=== PATIENT | female | born 1960 | race Caucasian/White ===

== ENCOUNTER 2021-07-25 19:58 | Emergency (ER) | payer OTHER ==
--- NOTE | 2021-07-25 20:45 | ED Physician Documentation ---
PD HPI UPPER EXT INJURY - Stated complaint Stated Complaint: LT FINGER BURN - History obtained from History obtained from: Patient - History of Present Illness Location: Left, Finger (index finger distal fat pad.) Type of injury: Burn (she reached for oven rack, thinking it was not heated as yet (oven had just gotten turned on) but it was hot and she got a burn to tip of left index finger. Hurting less in cold water but continues being painful.) Where injury occurred: Home Timing - onset: Today Timing - duration: Minutes (30) Timing - details: Abrupt onset, Still present Worsened by: Moving, Palpating Associated symptoms: No: Weakness, Numbness Similar symptoms before: Has not had sx before Review of Systems Skin: denies: Laceration (s) Neurologic: denies: Focal weakness, Numbness PD PAST MEDICAL HISTORY - Past Medical History Past Medical History: No Endocrine/Autoimmune: HyPOthyroidism - Present Medications Home Medications: Ambulatory Orders Medication Instructions Recorded Confirmed Levothyroxine Sodium 50 mcg PO QDBREAKFAST 07/25/21 07/25/21 - Allergies Allergies/Adverse Reactions: Allergies Allergy/AdvReac Type Severity Reaction Status Date / Time No Known Drug Allergies Allergy Verified 07/25/21 20:46 PD ED PE NORMAL - Vitals Vital signs reviewed: Yes - General General: Alert and oriented X 3, No acute distress, Well developed/nourished - Derm Derm: Normal color, Warm and dry - Extremities Extremities: Other (Left index finger tip on the distal phalanx fat pad shows a 1 cm oval partial-thickness burn. Minimal fluid in the tissue underneath. It does not cross the flexion crease. Locally tender c/w 2nd degree. ) - Neuro Neuro: No motor deficit, No sensory deficit Results - Vitals Vitals: Vital Signs - 24 hr 07/25/21 20:44 Temperature 36.0 C L Heart Rate 68 Respiratory 16 Rate Blood Pressure 130/85 H O2 Saturation 98 Oxygen O2 Source Room air Departure - Departure Disposition: 01 Home, Self Care Clinical Impression: Burn of finger Qualifiers: Encounter type: initial encounter Laterality: left Burn degree: partial thickness (2nd degree) Qualified Code(s): T23.222A - Burn of second degree of single left finger (nail) except thumb, initial encounter Condition: Stable Record reviewed to determine appropriate education?: Yes Instructions: ED Burn D 2nd Comments: It does look like that area will blister up and peel off after a while. We typically leave the skin on for now as a protectant over the area. If it blisters tensely, you can deflate it with a small needle or such. It should be hurting less after a day or so. It will likely take a week or so for healing. Tylenol or ibuprofen subsequently. You were given a dose of a opioid pain medicine tonight to help right now. Okay topical lidocaine or benzocaine can help as well. Discharge Date/Time: 07/25/21 21:00
[2021-07-25 20:46] VITALS: BP 130/85
[2021-07-25] MEDS ORDERED: LIDOCAINE OINTMENT 5% 35.44 GM TUBE TOP STA (20:54)
[2021-07-25] MEDS ORDERED: oxyCODONE 5 MG TABLET PO STA (20:54)
== END 2021-07-25 21:00 | disposition home or self-care (01) ==
LOC: ED 19:58
DX: T23.222A Burn of second degree of single left finger (nail) except thumb, initial encounter (principal); X08.8XXA Exposure to other specified smoke, fire and flames, initial encounter; Y93.G3 Activity, cooking and baking; Y92.000 Kitchen of unspecified non-institutional (private) residence as the place of occurrence of the external cause
CPT/HCPCS: 99282; A9270

== ENCOUNTER 2023-06-07 11:06 | Outpatient (CLI) | payer OTHER ==
[2023-06-07 11:20] LABS: BASOPHILS % (AUTO) 0.5 %; EOSINOPHILS # (AUTO) 0.3 10^3/uL (0.0-0.7); EOSINOPHILS % (AUTO) 4.5 %; HCT - HEMATOCRIT 43.1 % (37.0-47.0); HGB - HEMOGLOBIN 14.8 g/dL (12.0-16.0); LYMPHOCYTES # (AUTO) 1.3 10^3/uL (1.5-3.5); MEAN CORPUSCULAR HEMOGLOBIN 33.6 pg (27.0-31.0); MEAN CORPUSCULAR HGB CONC 34.3 g/dL (32.0-36.0); MEAN CORPUSCULAR VOLUME 97.7 fL (81.0-99.0); MEAN PLATELET VOLUME 10.9 fL (7.9-10.8); MONOCYTES # (AUTO) 0.6 10^3/uL (0.0-1.0); NEUTROPHILS # (AUTO) 3.8 10^3/uL (1.5-6.6); NEUTROPHILS % (AUTO) 63.5 %; PLT - PLATELET COUNT 230 10^3/uL (130-450); RED BLOOD COUNT 4.41 10^6/uL (4.20-5.40); RED CELL DISTRIBUTION WIDTH 12.4 % (12.0-15.0)
[2023-06-07 11:32] LABS: ALBUMIN 4.6 g/dL (3.2-5.5); ALBUMIN/GLOBULIN RATIO 1.5 (1.0-2.2); BILIRUBIN,TOTAL 0.5 mg/dL (0.2-1.0); CALCIUM 10.1 mg/dL (8.5-10.3); POTASSIUM 4.6 mmol/L (3.5-4.5); TOTAL PROTEIN 7.7 g/dL (6.4-8.9)
[2023-06-07 12:04] LABS: ESTIMATED AVERAGE GLUCOSE 94 mg/dL (70-100); HEMOGLOBIN A1c% 4.9 % (4.27-6.07)
== END 2023-06-07 11:07 | disposition home or self-care (01) ==
LOC: LAB 11:06
PROVIDERS: ATTEND Plastic Surgery
DX: Z01.812 Encounter for preprocedural laboratory examination (principal)
CPT/HCPCS: 36415; 80053; 83036; 85025

== ENCOUNTER 2023-07-01 11:04 | Emergency (ER) | payer OTHER ==
[2023-07-01] MEDS ORDERED: SODIUM CHLORIDE 0.9% 1,000 ML IV STA ×2 (11:23→11:50)
[2023-07-01] MEDS ORDERED: ONDANSETRON 4 MG/2 ML VIAL IVP STA (11:23)
--- NOTE | 2023-07-01 11:50 | ED Physician Documentation ---
History of Present Illness - Stated complaint Stated Complaint: POST SURGICAL COMP - Chief complaint Chief Complaint: General - Additonal information Additional information: 63-year-old female presents to the emergency department for evaluation of uncontrolled nausea and vomiting and urinary retention. She underwent bilateral breast implant removal at a plastic surgery office yesterday due to implant rupture. She reports she was discharged about 4 PM. It sounds as though she had a scopolamine patch in place. In route home she drank 2 bottles of water. When she got home she drank 4 more bottles of water and had a smoothie. Shortly thereafter she began vomiting. Since discharge yesterday afternoon she has been able to tolerate some foods such as a protein bar and some eggs this morning but the nausea is fairly persistent. She also has the urge to void but is voiding very little and has a palpable bladder on exam. She states she has been taking Zofran without relief of the nausea as well as oxycodone. She is denying fevers or pain out of proportion given recent surgery. 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 : None HEENT: None Psych: None Musculoskeletal: None Derm: None - Past Surgical History Past Surgical History: Yes /GAME PRESERVE MANAGER: Breast implants, Other - Present Medications Home Medications: Ambulatory Orders Medication Instructions Recorded Confirmed Levothyroxine Sodium 50 mcg PO QDBREAKFAST 07/25/21 10/31/21 Nitrofurantoin [Macrobid] 1 cap PO BID #10 cap 10/31/21 - Allergies Allergies/Adverse Reactions: Allergies Allergy/AdvReac Type Severity Reaction Status Date / Time No Known Drug Allergies Allergy Verified 10/31/21 16:15 - Social History Does the pt smoke?: No Smoking Status: Never smoker Does the pt drink ETOH?: Yes Does the pt have substance abuse?: No - Immunizations Immunizations are current?: Yes - POLST Patient has POLST: No PD ED PE NORMAL - General General: Alert and oriented X 3. No: No acute distress (nauseated) - HEENT HEENT: Atraumatic. No: Moist mucous membranes (dry mouth, lips) - Neck Neck: Supple, no meningeal sign - Cardiac Cardiac: RRR, No murmur - Respiratory Respiratory: No respiratory distress, Clear bilaterally - Abdomen Abdomen: Normal bowel sounds, Soft, Non tender - Derm Derm: Normal color, Warm and dry, Other (bilateral breast incision wll approximated. scant drainage. Breast ecchymosis bilaterally. 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 Eye Opening: Spontaneous Motor: Obeys Commands Verbal: Oriented GCS Score: 15 Results - Vitals Vitals: Vital Signs - 24 hr 07/01/23 11:15 Temperature 36.5 C Heart Rate 72 Respiratory 18 Rate Blood Pressure 100/62 O2 Saturation 99 Oxygen O2 Source Room air - Labs Labs: Laboratory Tests 07/01/23 07/01/23 07/01/23 11:40 11:40 12:23 WBC 11.7 H RBC 3.24 L Hgb 11.2 L Hct 31.7 L MCV 97.8 MCH 34.6 H MCHC 35.3 RDW 11.7 L Plt Count 204 MPV 11.3 H Neut # (Auto) 8.7 H Lymph # (Auto) 1.6 [place] # (Auto) 1.4 H Eos # (Auto) 0.0 Baso # (Auto) 0.0 Absolute Nucleated RBC 0.00 Nucleated RBC % 0.0 Sodium 126 L Potassium 3.8 Chloride 95 L Carbon Dioxide 25 Anion Gap 6.0 BUN 21 H Creatinine 0.9 Estimated GFR (MDRD) 63 L Glucose 106 H Calcium 8.9 Total Bilirubin 0.7 AST 17 ALT 11 Alkaline Phosphatase 42 Total Protein 6.3 L Albumin 3.9 Globulin 2.4 Albumin/Globulin Ratio 1.6 Lipase 21 Urine Color YELLOW Urine Clarity CLEAR Urine pH 6.0 Ur Specific [place] 1.015 Urine Protein NEGATIVE Urine Glucose (UA) NEGATIVE Urine Ketones NEGATIVE Urine Occult Blood NEGATIVE Urine Nitrite NEGATIVE Urine Bilirubin NEGATIVE Urine Urobilinogen 0.2 (NORMAL) Ur Leukocyte Esterase SMALL H Urine RBC 0-5 Urine WBC 0-3 Ur Squamous Epith Cells FEW Squamous Urine Bacteria Few Urine Yeast PRESENT Ur Microscopic Review INDICATED Urine Culture Comments INDICATED PD Medical Decision Making - ED course Complexity details: reviewed results, re-evaluated patient, d/w patient ED course: 63-year-old female presents emergency department for evaluation of uncontrolled nausea and vomiting as well as urinary retention. She underwent bilateral breast implant removal yesterday at a surgery clinic in [place]. She did have a scopolamine patch in place which was removed this morning. However when she got home yesterday afternoon in the span of about 4 hours she consumed 6 bottles of water as well as a smoothie and then began vomiting. Since then most liquids seem to induce nausea though she has been able to keep some solids down. She is also reporting difficulty urinating. Presentation the emergency department she is alert and well-appearing. She has no fever or worrisome vital sign abnormality. Abdominal exam was rather benign. She does have expected ecchymosis of both breasts given the recent surgery. Bilateral OLESYA drains are in place draining moderate amount of serosanguineous fluid. In the emergency department I did obtain CBC electrolytes and urinalysis. Per my interpretation no worrisome leukocytosis or anemia. She does have a mild hyponatremia with sodium of 126. I attribute this to dehydration in the setting of vomiting. Urine showed so nice signs of infection. A bladder scan did reveal more than 700 mL of volume and as such I suspect she has urinary retention secondary anesthesia yesterday. A Chandler catheter was placed at the bedside and immediately nearly a liter of urine drained. She will be discharged with a Chandler/leg bag. Patient will need to follow-up over the weekend either at urgent care or return visit to the ER to have the catheter removed to see if she can tolerate a trial of void. In the emergency department we did administer her 2 L of crystalloid as well as Zofran and following this her nausea is improved. She is tolerating sips of clear liquids as well as bites of crackers. This time I feel that she is stable for discharge home. She will likely return to this emergency department 48 hours time to have the Chandler catheter removed. She is encouraged to continue the Zofran at home but instead of consuming large volumes of food at once she should do small frequent sips of food and liquid. She can continue the antibiotic that she was prescribed postoperatively as well as the oxycodone. Usual emergent return precautions were discussed for worsening symptoms Departure - Departure Disposition: 01 Home, Self Care Clinical Impression: Acute urinary retention, Postoperative nausea and vomiting Instructions: ED Catheter Care Chandler, ED Nausea Vomiting Comments: You were seen today because you have persistent nausea, some vomiting and difficulty urinating after your surgery yesterday. Most of the symptoms are a consequence of anesthesia. In the emergency department we did give you 2 L of IV fluids as well as some Zofran. Your nausea has improved and you are tolerating sips of clear liquids. At home continue to use the Zofran or on gestrinone that is the nausea medicine. I recommend frequent small sips of water, broth Gatorade or any electrolyte drink. Also I recommend small bites of easy to digest foods such as bananas, rice, applesauce and toast. Typically the effects of anesthesia will linger for about 48 to 72 hours. The other consequence of your anesthesia is called urinary retention. We drained over a liter of urine from your bladder today. When your bladder gets over distended you are not able to adequately empty it. I would recommend that you keep the Chandler in place for the next 48 to 72 hours. You can return here on Tuesday or Tuesday to have the Chandler catheter removed and try voiding at home. Otherwise you can continue your usual medications and antibiotics as already prescribed postoperatively. Return to the ER for any new or worsening symptoms including fevers. Forms: PCP List
[2023-07-01 12:04] LABS: ALBUMIN 3.9 g/dL (3.2-5.5); ALBUMIN/GLOBULIN RATIO 1.6 (1.0-2.2); BILIRUBIN,TOTAL 0.7 mg/dL (0.2-1.0); CALCIUM 8.9 mg/dL (8.5-10.3); CREATININE 0.9 mg/dL (0.6-1.3); HCT - HEMATOCRIT 31.7 % (37.0-47.0); HGB - HEMOGLOBIN 11.2 g/dL (12.0-16.0); POTASSIUM 3.8 mmol/L (3.5-4.5); RED BLOOD COUNT 3.24 10^6/uL (4.20-5.40); TOTAL PROTEIN 6.3 g/dL (6.4-8.9); WHITE BLOOD COUNT 11.7 x10^3/uL (4.8-10.8)
[2023-07-01 12:05] LABS: BASOPHILS % (AUTO) 0.2 %; EOSINOPHILS % (AUTO) 0.2 %; LYMPHOCYTES # (AUTO) 1.6 10^3/uL (1.5-3.5); LYMPHOCYTES % (AUTO) 13.2 %; MEAN CORPUSCULAR HEMOGLOBIN 34.6 pg (27.0-31.0); MEAN CORPUSCULAR HGB CONC 35.3 g/dL (32.0-36.0); MEAN CORPUSCULAR VOLUME 97.8 fL (81.0-99.0); MEAN PLATELET VOLUME 11.3 fL (7.9-10.8); MONOCYTES # (AUTO) 1.4 10^3/uL (0.0-1.0); MONOCYTES % (AUTO) 11.9 %; NEUTROPHILS # (AUTO) 8.7 10^3/uL (1.5-6.6); NEUTROPHILS % (AUTO) 74.2 %; PLT - PLATELET COUNT 204 10^3/uL (130-450); RED CELL DISTRIBUTION WIDTH 11.7 % (12.0-15.0)
[2023-07-01] MEDS ORDERED: DOXYCYCLINE 100 MG TABLET PO STA (12:34)
[2023-07-01 12:44] LABS: BILIRUBIN,URINE NEGATIVE (NEGATIVE); GLUCOSE, URINE (UA) NEGATIVE (NEGATIVE); KETONES,URINE (UA) NEGATIVE (NEGATIVE); LEUKOCYTE ESTERASE, URINE SMALL (NEGATIVE); NITRITE,URINE NEGATIVE (NEGATIVE); OCCULT BLOOD,URINE NEGATIVE (NEGATIVE); PROTEIN,URINE NEGATIVE (NEGATIVE); UROBILINOGEN,URINE 0.2 (NORMAL) E.U./dL (NORMAL)
[2023-07-01 12:47] LABS: CLARITY,URINE CLEAR (CLEAR)
[2023-07-01 13:01] LABS: RBC,URINE 0-5 /HPF (0-5); WBC,URINE 0-3 /HPF (0-5)
[2023-07-01 13:02] LABS: BACTERIA,URINE Few /HPF (None Seen); SQUAMOUS EPITHELIAL CELL,UR FEW Squamous (<= Few); YEAST,URINE PRESENT
[2023-07-01 14:26] VITALS: BP 99/58; O2SAT 100
== END 2023-07-01 14:20 | disposition home or self-care (01) ==
LOC: ED 11:04
DX: T81.89XA Other complications of procedures, not elsewhere classified, initial encounter (principal); R11.2 Nausea with vomiting, unspecified; R33.9 Retention of urine, unspecified; E03.9 Hypothyroidism, unspecified; Z79.899 Other long term (current) drug therapy
CPT/HCPCS: 36415; 51702; 51798; 80053; 81001; 83690; 85025; 87077; 87086; 99283; 99284; A9270; 81003

== ENCOUNTER 2023-07-02 12:08 | Emergency (ER) | payer OTHER ==
[2023-07-02] MEDS ORDERED: DROPERIDOL 5 MG/2 ML VIAL IVP STA (12:50)
[2023-07-02] MEDS ORDERED: KETOROLAC 30 MG/ML VIAL IVP STA (12:50)
--- NOTE | 2023-07-02 12:54 | ED Physician Documentation ---
History of Present Illness - Stated complaint Stated Complaint: HEAD PRESSURE/PULSATING SOUND - Chief complaint Chief Complaint: General - History obtained from History obtained from: Patient - History of Present Illness Pain level max: 6 Pain level now: 5 - Additonal information Additional information: Patient is a 63-year-old female who presents to the emergency department complaining of increasing head pressure and "whooshing sounds" in the front of her head. No chest pain. No nausea or vomiting. She had bilateral breast implant removal done 2 days ago. Yesterday she was here for urinary retention as well as nausea and vomiting. She was given IV fluids, her sodium levels were down to 126 at that time as well. No fall. No trauma. No fever. No chills. Nothing seems to make it better or worse. 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: Breast implants, Other - Present Medications Home Medications: Ambulatory Orders Medication Instructions Recorded Confirmed Levothyroxine Sodium 50 mcg PO QDBREAKFAST 07/25/21 07/02/23 Doxycycline [Vibramycin] 100 mg PO BID 07/02/23 07/02/23 - Allergies Allergies/Adverse Reactions: Allergies Allergy/AdvReac Type Severity Reaction Status Date / Time No Known Drug Allergies Allergy Verified 07/02/23 12:48 - Social History Does the pt smoke?: No Smoking Status: Never smoker Does the pt drink ETOH?: Yes Does the pt have substance abuse?: No - Immunizations Immunizations are current?: Yes - POLST Patient has POLST: No PD ED PE NORMAL - Vitals Vital signs reviewed: Yes - General General: Alert and oriented X 3, No acute distress - HEENT HEENT: Atraumatic, PERRL, EOMI, Moist mucous membranes - Neck Neck: Supple, no meningeal sign, No JVD, No bruit - Cardiac Cardiac: RRR, No murmur - Respiratory Respiratory: No respiratory distress, Clear bilaterally - Abdomen Abdomen: Soft, Non tender, Non distended - Derm Derm: Warm and dry, No rash - Extremities Extremities: No edema - Neuro Neuro: Alert and oriented X 3, parker 2-12 intact, No motor deficit, No sensory deficit, Normal speech Eye Opening: Spontaneous Motor: Obeys Commands Verbal: Oriented GCS Score: 15 - Psych Psych: Normal mood, Normal affect Results - Vitals Vitals: Vital Signs - 24 hr 07/02/23 07/02/23 07/02/23 12:16 12:52 14:03 Temperature 97.7 C H Heart Rate 71 65 61 Respiratory 18 18 16 Rate Blood Pressure 99/59 L 114/67 90/61 O2 Saturation 98 99 100 Oxygen O2 Source Room air - Labs Labs: Laboratory Tests 07/02/23 07/02/23 12:55 12:55 WBC 7.0 RBC 2.85 L Hgb 9.5 L Hct 28.6 L MCV 100.4 H MCH 33.3 H MCHC 33.2 RDW 11.9 L Plt Count 166 MPV 11.6 H Neut # (Auto) 4.8 Lymph # (Auto) 1.3 L [place] # (Auto) 0.9 Eos # (Auto) 0.0 Baso # (Auto) 0.0 Absolute Nucleated RBC 0.00 Nucleated RBC % 0.0 Sodium 137 Potassium 4.5 Chloride 108 Carbon Dioxide 23 Anion Gap 6.0 BUN 20 Creatinine 0.9 Estimated GFR (MDRD) 63 L Glucose 99 Calcium 9.3 PD Medical Decision Making - ED course Complexity details: reviewed results, re-evaluated patient, considered differential (No evidence of carotid or vertebral artery dissection.), d/w patient, d/w family ED course: Patient with what sounds like a headache following her anesthesia. She was given Toradol and droperidol. Symptoms resolved. Her sodium levels are back to normal. Her hemoglobin has continued to drop, is having some serosanguineous drainage from her OLESYA drains, also received 2 L of IV fluids yesterday, possibly delusional? We will have her hemoglobin rechecked With her doctor and 2 to 3 days. She will develop sooner if she develops worsening symptoms, or lightheadedness, shortness of breath or chest pain. Patient counseled regarding signs and symptoms for which I believe and urgent re-evaluation would be necessary. Patient with good understanding of and agreement to plan and is comfortable going home at this time This document was made in part using voice recognition software. While efforts are made to proofread this document, sound alike and grammatical errors may occur. Departure - Departure Disposition: 01 Home, Self Care Clinical Impression: Cephalalgia Qualifiers: Headache type: unspecified Headache chronicity pattern: acute headache Intractability: not intractable Qualified Code(s): R51.9 - Headache, unspecified Anemia Qualifiers: Anemia type: unspecified type Qualified Code(s): D64.9 - Anemia, unspecified Condition: Good Instructions: ED Cephalgia Unspecified Follow-Up: JUAN ANTONIO GUSTAFSON MD [Primary Care Provider] - Within 1 week Comments: Your sodium levels have improved since yesterday. They are back to normal. Your hemoglobin levels have continued to drop, part of this is likely from the surgery and part of this is likely from the IV fluids she received yesterday. You should have your hemoglobin level rechecked on Tuesday or Tuesday with your doctor. You are down to 9.5 today. Please return if you develop chest pain, shortness of breath, lightheadedness or other new or worrisome symptoms. Forms: PCP List Discharge Date/Time: 07/02/23 14:04
[2023-07-02 13:06] LABS: BASOPHILS % (AUTO) 0.3 %; EOSINOPHILS % (AUTO) 0.3 %; HCT - HEMATOCRIT 28.6 % (37.0-47.0); HGB - HEMOGLOBIN 9.5 g/dL (12.0-16.0); LYMPHOCYTES # (AUTO) 1.3 10^3/uL (1.5-3.5); LYMPHOCYTES % (AUTO) 18.5 %; MEAN CORPUSCULAR HEMOGLOBIN 33.3 pg (27.0-31.0); MEAN CORPUSCULAR HGB CONC 33.2 g/dL (32.0-36.0); MEAN CORPUSCULAR VOLUME 100.4 fL (81.0-99.0); MEAN PLATELET VOLUME 11.6 fL (7.9-10.8); MONOCYTES # (AUTO) 0.9 10^3/uL (0.0-1.0); MONOCYTES % (AUTO) 12.1 %; NEUTROPHILS # (AUTO) 4.8 10^3/uL (1.5-6.6); NEUTROPHILS % (AUTO) 68.5 %; PLT - PLATELET COUNT 166 10^3/uL (130-450); RED BLOOD COUNT 2.85 10^6/uL (4.20-5.40); RED CELL DISTRIBUTION WIDTH 11.9 % (12.0-15.0)
[2023-07-02 13:26] LABS: CALCIUM 9.3 mg/dL (8.5-10.3); CREATININE 0.9 mg/dL (0.6-1.3); POTASSIUM 4.5 mmol/L (3.5-4.5)
[2023-07-02 14:07] VITALS: BP 90/61; O2SAT 100
== END 2023-07-02 14:04 | disposition home or self-care (01) ==
LOC: ED 12:08
DX: R51.9 Headache, unspecified (principal); D64.9 Anemia, unspecified
CPT/HCPCS: 36415; 80048; 85025; 96374; 96375; 99283